=== PATIENT | female | born 1970 | race American Indian/Alaskan Native ===

== ENCOUNTER 2018-08-26 08:34 | Emergency (ER) | payer MEDICARE, OTHER ==
[2018-08-26 08:41] VITALS: RESP 18; TEMP 98; O2SAT 99; BMI 28.1
--- NOTE | 2018-08-26 10:02 | ED PDOC ---
Addendum entered and electronically signed by Rachel Yoo PA 08/29/18 10:40: Addendum Addendum: 08/29/18 10:39 patient called er. i discussed results with patient in depth; rx for bactrim transmitted to patients pharmacy. Addendum entered and electronically signed by Mayco MERINO,Perla Gale PA-C 08/28/18 16:31: Addendum Addendum: 08/28/18 16:30 Urine cx + e coli, sensitive to bactrim and macrobid. Pt called, message left. Needs a 2nd call. Original Note: Arrival/HPI - General Historian: Patient - History of Present Illness Narrative History of Present Illness (Text): 08/26/18 09:54 47yr old female with hx of MS presents today with a 2 week history of dysuria, vaginal irritation and itch. pt was seen at [facility] 1 week ago and given macrobid for UTI. pt states symptoms have not resolved. pt is c/o of a thick white vaginal discharge. no abdominal pain. no n/v/d/c/. no cp or sob. no fever/chills. no bladder or bowel incontinence. no other complaints. <Rachel Yoo - Last Filed: 08/26/18 14:45> <Kamari Senior - Last Filed: 08/27/18 16:49> - General Chief Complaint: Female Genitourinary Time Seen by Provider: 08/26/18 09:39 Past Medical History - Provider Review Nursing Documentation Reviewed: Yes - Travel History Have you recently traveled outside [place] w/in the past 3 mons?: No - Infectious Disease Hx of Infectious Diseases: None - Tetanus Immunization Tetanus Immunization: Unknown - Cardiac Other/Comment: MS - Neurological Hx Multiple Sclerosis: Yes - Musculoskeletal/Rheumatological Hx Falls: Yes - Psychiatric Hx Depression: No Hx Emotional Abuse: No Hx Physical Abuse: No Hx Substance Use: No - Past Surgical History Past Surgical History: Non-Contributing - Anesthesia Hx Anesthesia: No - Suicidal Assessment Feels Threatened In Home Enviroment: No <Rachel Yoo - Last Filed: 08/26/18 14:45> Family/Social History - Physician Review Nursing Documentation Reviewed: Yes Family/Social History: Unknown Family HX Smoking Status: Never Smoked Hx Alcohol Use: Yes Frequency of alcohol use: Socially Hx Substance Use: No Hx Substance Use Treatment: No <Rachel Yoo - Last Filed: 08/26/18 14:45> Allergies/Home Meds <Rachel Yoo - Last Filed: 08/26/18 14:45> <Kamari Senior - Last Filed: 08/27/18 16:49> Allergies/Adverse Reactions: Allergies No Known Allergies Allergy (Verified 09/09/16 13:12) Home Medications: Home Meds Medication Instructions Recorded Confirmed RX: Glatiramer Acetate [Copaxone] 20 mg [place] [facility] 07/18/14 07/18/14 Review of Systems - Review of Systems Constitutional: absent: Fatigue, Fevers Respiratory: absent: SOB, Cough Cardiovascular: absent: Chest Pain, Palpitations Gastrointestinal: absent: Abdominal Pain, Constipation, Diarrhea, Nausea, Vomiting Genitourinary Female: Dysuria, Frequency, Vaginal Discharge Musculoskeletal: absent: Arthralgias, Back Pain, Neck Pain Skin: Pruritis. absent: Rash Neurological: absent: Headache, Dizziness Psychiatric: absent: Anxiety, Depression <Rachel Yoo - Last Filed: 08/26/18 14:45> Physical Exam Vital Signs Reviewed: Yes Vital Signs Temp Pulse Resp BP Pulse Ox 08/26/18 08:41 98.0 F 68 18 105/72 99 Temperature: Afebrile Blood Pressure: Normal Pulse: Regular Respiratory Rate: Normal Appearance: Positive for: Well-Appearing, Non-Toxic, Comfortable Pain Distress: None Mental Status: Positive for: Alert and Oriented X 3 - Systems Exam Head: Present: Atraumatic Mouth: Present: Moist Mucous Membranes Neck: Present: Normal Range of Motion Respiratory/Chest: Present: Clear to Auscultation, Good Air Exchange. No: Respiratory Distress, Accessory Muscle Use Cardiovascular: Present: Regular Rate and Rhythm, Normal S1, S2. No: Murmurs Abdomen: No: Tenderness, Distention, Peritoneal Signs, Rebound, Guarding Genitourinary/Pelvic Exam: Present: Normal External Genitalia, Vaginal Discharge (white vaginal discharge), Cervical os Closed, Other (chaparoned by dara villarreal). No: Vaginal Bleeding, Vaginal Lesions, Adenexal Tenderness, Adenexal Mass, Cervical Motion Tendernes, Odor Back: Present: Normal Inspection. No: CVA Tenderness Upper Extremity: Present: Normal ROM Lower Extremity: Present: Normal ROM Neurological: Present: GCS=15, Speech Normal Skin: Present: Warm, Dry, Normal Color. No: Rashes Psychiatric: Present: Alert, Oriented x 3 <Rachel Yoo - Last Filed: 08/26/18 14:45> Vital Signs Temp Pulse Resp BP Pulse Ox 08/26/18 11:26 70 18 112/76 99 08/26/18 08:41 98.0 F 68 18 105/72 99 <Kamari Senior - Last Filed: 08/27/18 16:49> Medical Decision Making ED Course and Treatment: 08/26/18 10:23 47yr old female with dysuria and vaginal irritation. Patient completed 7 day course of Macrobid. UA: No leukocytes positive yeast many bacteria 0-2 white blood cells. We'll treat with Diflucan and follow urine culture. I advised patient to follow up with the office clin asst and primary care physician within the next 2 days. Advised me to return if symptoms worsen or persist or if new concerning symptoms develop. I discussed the plan and after the patient advised we will contact her if she has a positive urine culture that will require alternate antibiotic. Patient verbalizes understanding of discharge instructions and need for immediate followup. impression; yeast infection, dysuria Increase fluids follow up with the COFFEE ATTENDANT within the next 2 days return if symptoms worsen, persist or if new symptoms develop. <Rachel Yoo - Last Filed: 08/26/18 14:45> - Lab Interpretations Lab Results: Lab Results 08/26/18 09:47: Urine Color Yellow, Urine Appearance Clear, Urine pH 6.0, Ur Specific Kennedy > 1.030, Urine Protein Trace H, Urine Glucose (UA) Negative, Urine Ketones Negative, Urine Blood Negative, Urine Nitrate Negative, Urine Bilirubin Negative, Urine Urobilinogen 1.0 H, Ur Leukocyte Esterase Negative, Urine RBC 0 - 2, Urine WBC 0 - 2, Ur Epithelial Cells Many, Urine Bacteria Many, Urine Other Uyeast - Medication Orders Current Medication Orders: Discontinued Medications Fluconazole (Diflucan) 150 mg PO STAT STA; Protocol Stop: 08/26/18 11:00 Last Admin: 08/26/18 11:07 Dose: 150 mg <Kamari Senior - Last Filed: 08/27/18 16:49> - PA / HEATER OPERATOR HELPER / Resident Statement MD/DO has reviewed & agrees with the documentation as recorded. <Kamari Senior - Last Filed: 08/27/18 16:49> Disposition/Present on Arrival - Present on Arrival Any Indicators Present on Arrival: No History of DVT/PE: No History of Uncontrolled Diabetes: No Urinary Catheter: No History of Decub. Ulcer: No History Surgical Site Infection Following: None - Disposition Have Diagnosis and Disposition been Completed?: Yes Disposition Time: 10:00 Patient Plan: Discharge <Rachel Yoo - Last Filed: 08/26/18 14:45> <Kamari Senior - Last Filed: 08/27/18 16:49> - Disposition Diagnosis: Yeast infection Disposition: HOME/ ROUTINE Condition: GOOD Discharge Instructions (ExitCare): Yeast Infection (DC) Additional Instructions: Increase fluids follow up with the COFFEE ATTENDANT within the next 2 days return if symptoms worsen, persist or if new symptoms develop. Referrals: Noemy Lam MD [Medical Doctor] - Follow up with primary [facility] [Outside] - Follow up with primary Forms: [employer] (Uzbek), WORK NOTE
[2018-08-26 10:14] LABS: URINE APPEARANCE CLEAR (CLEAR); URINE BILIRUBIN NEGATIVE (NEGATIVE); URINE COLOR YELLOW (YELLOW); URINE GLUCOSE (UA) NEGATIVE (NEGATIVE)
[2018-08-26 10:15] LABS: URINE BLOOD NEGATIVE (NEGATIVE); URINE LEUKOCYTE ESTERASE NEGATIVE Leu/uL (NEGATIVE); URINE PROTEIN TRACE mg/dL (<30 mg/dL)
[2018-08-26 10:20] LABS: URINE BACTERIA MANY (NEG); URINE EPITHELIAL CELLS MANY /hpf (0-5); URINE RBC 0 - 2 /hpf (0-2); URINE WBC 0 - 2 /hpf (0-6)
[2018-08-26 11:54] VITALS: BP 112/76; PULSE 70
== END 2018-08-26 11:26 | disposition home or self-care (01) ==
LOC: ED 08:34
DX: B37.3 Candidiasis of vulva and vagina (principal)